=== PATIENT | male | born 1965 | race Caucasian/White ===

== ENCOUNTER 2018-04-25 23:14 | Emergency (ER) | payer BC, OTHER ==
[2018-04-25] MEDS ORDERED: Ibuprofen 800 MG TAB ONE (23:28)
--- NOTE | 2018-04-25 23:56 | RAD ---
RIGHT FOOT THREE VIEWS: History: Injury. Comparison: None. FINDINGS: There is a fracture at the metaphyseal diaphyseal junction of the fifth metatarsal. This is nondispla rebeca. Degenerative changes of the hallux sesamoids. IMPRESSION: Nondisplaced Raymond fracture of the fifth metatarsal proximal metaphyseal diaphyseal junction. POS: BOWEN
== END 2018-04-26 00:26 | disposition home or self-care (01) ==
LOC: SCSER 23:14
DX: S92.354A Nondisplaced fracture of fifth metatarsal bone, right foot, initial encounter for closed fracture (principal); Z79.899 Other long term (current) drug therapy; W55.42XA Struck by pig, initial encounter
CPT/HCPCS: 29515

== ENCOUNTER 2018-08-25 12:38 | Outpatient (CLI) | payer OTHER ==
[2018-08-25 13:31] LABS: #Eosinphils 0.2 thou/uL (0.0-0.7); #Lymphocytes 2.7 thou/uL (1.20-3.40); #Monocytes 0.4 thou/uL (0.11-0.59); #Neutrophils 3.4 thou/uL (1.40-6.50); %Basophils 0.6 % (0.0-1.0); %Eosinophils 3.3 % (0.0-10.0); %Lymphocytes 39.8 % (21.0-51.0); %Neutrophils 50.3 % (42.0-75.0); Hemoglobin 15.2 g/dL (14.0-18.0); Mean Corpuscular HGB CONC 33.3 g/dL (32.0-36.0); Mean Corpuscular Hemoglobin 30.3 pg (27.0-31.0); Mean Corpuscular Volume 90.9 fL (78.0-98.0); Mean Platelet Volume 8.3 fL (7.4-10.4); Platelet Count 182 thou/uL (130-400); RBC Distribution Width 11.6 % (11.5-14.5); Red Blood Cell (RBC) Count 5.02 mill/uL (4.70-6.10); White Blood Cell (WBC) Count 6.7 thou/uL (4.8-10.8)
[2018-08-25 14:06] LABS: Anion Gap 13 mmol/L (10-20); BUN (Urea Nitrogen) 18 mg/dL (8.4-25.7); Calc. Creatinine Clearance 0 mL/min (70-130); Calcium 9.5 mg/dL (7.8-10.44); Carbon Dioxide 23 mmol/L (22-29); Chloride 108 mmol/L (98-107); Estimated GFR-MDRD 76; Glucose 92 mg/dL (70-105); Potassium 4.3 mmol/L (3.5-5.1); Sodium 140 mmol/L (136-145)
== END 2018-08-25 12:39 | disposition home or self-care (01) ==
LOC: LABBT 12:38
PROVIDERS: ATTEND Specialist
DX: Z01.812 Encounter for preprocedural laboratory examination (principal); K42.9 Umbilical hernia without obstruction or gangrene
CPT/HCPCS: 80048; 85025

== ENCOUNTER 2018-09-09 08:01 | Day surgery (SDC) | payer OTHER ==
[2018-08-25 12:47] VITALS: BMI 35.5
[2018-09-09] MEDS ORDERED: CEFAZOLIN/Water 2 GM/20 ML SYRINGE ONE (08:08)
[2018-09-09] MEDS ORDERED: Ketorolac Tromethamine 30 MG/ML VIAL ONE (08:08)
[2018-09-09] MEDS ORDERED: Bupivacaine/Epinephrine 0.25% 30 ML VIAL ONE (08:11)
[2018-09-09] MEDS ORDERED: HYDROmorphone 2 MG/ML VIAL ONE (08:29)
[2018-09-09] MEDS ORDERED: Fentanyl 100 MCG/2 ML VIAL ONE ×2 (08:29→11:02)
[2018-09-09] MEDS ORDERED: Ondansetron PF 4 MG/2 ML Vial ONE (11:34)
[2018-09-09] MEDS ORDERED: PROPOFOL 200 MG/20 ML VIAL ONE (11:34)
[2018-09-09] MEDS ORDERED: Glycopyrrolate 0.2 MG/ML 5 ML SYRINGE ONE (11:34)
[2018-09-09] MEDS ORDERED: Dexamethasone 20 MG/5 ML VIAL ONE (11:34)
[2018-09-09] MEDS ORDERED: Lidocaine 1% PF 5 ML VIAL ONE (11:34)
--- NOTE | 2018-09-10 15:25 | OP ---
DATE OF PROCEDURE: 09/09/2018 PREOPERATIVE DIAGNOSIS: Umbilical hernia. POSTOPERATIVE DIAGNOSIS: Umbilical hernia. OPERATION PERFORMED: Umbilical hernia repair with mesh using a 4.3 cm Ventralex mesh patch. Surgeon: Kash Jacobsen M.D. ANESTHESIA: General endotracheal. INDICATIONS: The patient is a 53-year-old obese white male. He presents with a substantial umbilica l hernia that is easily visible and only partially reducible. He is taken to the operating room at t his time for repair. OPERATIVE PROCEDURE IN DETAIL: Informed consent was obtained. The patient taken to the operating ro om where general endotracheal anesthesia obtained with the patient in supine position. Abdomen was p repped with ChloraPrep and draped in sterile fashion. Local anesthetic was infiltrated circumferenti ally using 0.25% Marcaine with epinephrine. Curvilinear infraumbilical incision was created through which dissection was carried through skin and subcutaneous tissue. The hernia sac was immediately un derlying the skin. I had to dissect the skin on the superior aspect off of the underlying hernia sac . I dissected inferiorly around the hernia down to the fascial defect. I continued to mobilize the hernia sac and contents away from the surrounding fatty tissue and the overlying umbilical skin and e ventually the umbilical stalk. The umbilicus was elevated off the underlying fascia and hernia sac a nd reflected superiorly. Dissection was then carried down to the base of the hernia circumferentially where dissection was car ried out at the level of the fascial defect. There was a large volume of primarily preperitoneal fat that was herniated. The patient has a thick subcutaneous fatty layer. There was a large component of material that comprised the hernia sac within the subcutaneous space. I could reduce all the tiss ue. I therefore began to divide the fatty tissue using careful slow meticulous electrocautery to emmanuelle ntain hemostasis. The fatty hernia contents were passed off the field. The fascial defect was dissected on the anterior aspect, dissecting the fat off the surrounding fasci a. I then bluntly dissected the preperitoneal space. There was a copious amount of preperitoneal fa tty tissue that was overlying the posterior aspect of the fascia. After this has been fully mobilize d, a 4.3 cm Ventralex mesh patch was obtained and passed into the preperitoneal space. It was pulled snug against the abdominal wall. The tails were secured to fascia superiorly and inferiorly using s imple interrupted sutures of 0 Prolene to the mesh straps. The lateral aspects of the defect were cl osed with single interrupted sutures of 0 Prolene as well, obtaining bites of anterior leaflet of the mesh patch. The umbilicus was secured down to the fascia with 2 interrupted sutures of 3-0 Vicryl. The wound was irrigated and all irrigant was aspirated. The incision was closed in layers with 3-0 and 4-0 Monocr yl suture. Local anesthetic was infiltrated into the wound was closed. Dermabond was placed over th e skin incision. A compression dressing was then affected using cotton balls and Tegaderm held in place with Mastisol. The air within the cotton balls was aspirated with a 21-gauge needle. The patient tolerated the procedure well and was taken to recovery in stable condition.
== END 2018-09-09 12:00 | disposition home or self-care (01) ==
LOC: SDC 08:01
PROVIDERS: ATTEND Specialist
PROC: 0WUF0JZ Supplement Abdominal Wall with Synthetic Substitute, Open Approach (ICD-10-PCS; principal; 2018-09-09)
DX: K42.9 Umbilical hernia without obstruction or gangrene (principal); K21.9 Gastro-esophageal reflux disease without esophagitis; Z79.899 Other long term (current) drug therapy
CPT/HCPCS: 96374; J0131; J1170; J1885; J3010

== ENCOUNTER 2021-01-10 10:21 | Outpatient (CLI) | payer OTHER ==
--- NOTE | 2021-01-10 11:55 | RAD ---
Cervical spine 6 views: 10/19/2014 HISTORY: Cervical radiculopathy, prior cervical spine surgery FINDINGS: Frontal imaging of the cervical spine demonstrates multilevel significant bilateral facet a nd uncovertebral osteophyte formation, left greater than right, significant within the inferior cervical spine. Open-mouth odontoid view demonstrate a normal-appearing dens and C1-2 articulation. Neutral lateral exam demonstrates disc space narrowing with degenerative endplate change and anterior osteophyte formation at C5-6 and to a lesser degree, C3-4-5. The neutral lateral exam demonstrates no significant anterolisthesis or retrolisthesis. Anterior discectomy and fusion hardware is present at C6-7. The cervicothoracic junction appears grossly unremarkable on the swimmer's lateral view. Flexion and extension imaging demonstrates no significant anterolisthesis or retrolisthesis. No prevertebral soft tissue swelling. IMPRESSION: Postoperative and multilevel cervical spine degenerative change as detailed above.
== END 2021-01-10 10:22 | disposition home or self-care (01) ==
LOC: TBSIIMAG 10:21
PROVIDERS: ATTEND Neurological Surgery
DX: M47.22 Other spondylosis with radiculopathy, cervical region (principal); Z98.890 Other specified postprocedural states
CPT/HCPCS: 72050